=== PATIENT | female | born 1955 | race Caucasian/White ===

== ENCOUNTER → 2018-06-17 | Day surgery (SDC) | payer BC ==
[2018-06-15 11:53] LABS: BASOPHILS # (AUTO) 0.1 (0.0-0.1); BASOPHILS % 0.6 % (0.0-1.0); EOSINOPHILS # (AUTO) 0.5 (0.0-0.4); EOSINOPHILS % 6.3 % (0.0-6.0); HEMATOCRIT 40.2 % (34.2-44.1); HEMOGLOBIN 12.7 g/dL (12.0-16.0); LYMPHOCYTES # (AUTO) 1.8 (1.0-3.2); LYMPHOCYTES % 23.2 % (18.0-39.1); MEAN CORPUSCULAR HEMOGLOBIN 27.3 pg (28-32); MEAN CORPUSCULAR HGB CONC 31.6 g/dL (31-35); MEAN CORPUSCULAR VOLUME 86.3 fL (81-99); MONOCYTES # (AUTO) 0.7 (0.2-0.8); MONOCYTES % 9.2 % (4.4-11.3); NEUTROPHILS # (AUTO) 4.7 (2.1-6.9); NEUTROPHILS % 60.4 % (38.7-80.0); PLATELET COUNT 303 x10e3/uL (140-360); RED BLOOD COUNT 4.66 x10e6/uL (3.6-5.1); RED CELL DISTRIBUTION WIDTH 15.9 % (11.7-14.4)
[2018-06-15 12:06] LABS: INR 0.96
[2018-06-15 12:07] LABS: PARTIAL THROMBOPLASTIN TIME 22.4 seconds (23.8-35.5)
[2018-06-15 12:16] LABS: ALANINE AMINOTRANSFERASE 34 IU/L (0-55); ALBUMIN 3.8 g/dL (3.5-5.0); ALKALINE PHOSPHATASE 67 IU/L (40-150); ANION GAP 15.4 mmol/L (8-16); BLOOD UREA NITROGEN 15 mg/dL (7-26); BUN/CREATININE RATIO 19 (6-25); CALCIUM 9.9 mg/dL (8.4-10.2); CARBON DIOXIDE 25 mmol/L (22-29); CHLORIDE 99 mmol/L (98-107); CREATININE, SERUM 0.79 mg/dL (0.57-1.11); EST GLOMERULAR FILTRATION RATE > 60 ML/MIN (60-); GLUCOSE 178 mg/dL (74-118); POTASSIUM 4.4 mmol/L (3.5-5.1); SODIUM 135 mmol/L (136-145)
[~2018-06-17] MED LIST: ALENDRONATE SOD35 MG PO; AMITRIPTYLINE H10 MG PO; AREDS EYE VIT PO; ARIMIDEX1 MG PO; BUPIVACAINE HCL 0.5% INJ 30 ML VIAL INJ ONE; CALCIUM 600 +1 EAC2 PO; CEFAZOLIN SOD 1 GM VIAL IV ONE; CEFAZOLIN SOD 1 GM VIAL ONE; CITALOPRAM HBR20 MG PO; DEXAMETHASONE SOD PHOS INJ 4 MG/ML VIAL IV ONE; DIPHENHYDRAMINE HCL INJ 50 MG/ML VIAL ONE; EPINEPHRINE HCL INJ 1 MG/ML AMP ONE; FENTANYL CITRATE/PF 100MCG/2 ML INJ ONE; FIBER GUMMIES PO; GLIMEPIRIDE1 MG PO; INVOKAMET PO; JANUVIA100 MG PO; KETOROLAC TROMETHAMINE 30 MG/ML VIAL IV ONE; KETOROLAC TROMETHAMINE 30 MG/ML VIAL ONE; LIDOCAINE HCL 1% LOCAL INJ 20 ML VIAL ONE; LIDOCAINE HCL 2% LOCAL INJ 5 ML SDV VIAL INJ ONE; LISINOPRIL-HCT1 EAC2 PO; METOPROLOL SUCC50 MG PO; MIDAZOLAM HCL 2 MG/2 ML VIAL ONE; MORPHINE SULFATE 2 MG/ML SYR ONE; ONDANSETRON HCL INJ 2 MG/ML VIAL IV ONE; PROBIOTIC PO; PROPOFOL IV EMULSION 10 MG/ML 20 ML VIAL IV ONE; SEVOFLURANE INHAL SOLN 250 ML PEN BTL INH ONE; SIMVASTATIN40 MG PO
[2018-06-17 14:35] VITALS: BP 138/65
--- OUTSIDE RECORDS SUMMARY | 2018-07-08 07:39 | XMS REPORT ---
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 Unavailable Unavailable Problems This patient has no known problems. Allergies, Adverse Reactions, Alerts This patient has no known allergies or adverse reactions. Medications This patient has no known medications. Encounters Start Date/Time End Date/Time Encounter Type Admission Type Attending Clinicians Care Facility Care Department Encounter ID 2017-09-03 14:39:00 2017-09-03 14:39:00 Outpatient C MINNA JUNE M.D. [facility] [id number] Results Test Description Test Time Test Comments Text Results Atomic Results Result Comments POC Glucose, Blood 2017-09-03 15:59:00 POC Glucose (test code=POCGLUC) 101 mg/dL 70-115 If you consider your patient critically ill, the Charlee Accu-Chek InformII metershould not be used for Glucose determinations.Draw a venous Glucose and send to the Main Lab for Analysis.
--- OUTSIDE RECORDS SUMMARY | 2018-07-08 07:39 | XMS REPORT | Clinical Summary ---
Author Author [facility] Address Unknown Phone Unavailable Care Team Providers Care [employer] Team Member Name Role Phone William Macias MD PCP Allergies Active Allergy Reactions Severity Noted Date Comments Other 12/03/2015 Current Medications Prescription Sig. Disp. Refills Start End Date Status Date simvastatin (ZOCOR) 40 MG Take 40 mg by mouth every 2 08/24/20 Active tablet evening. 17 mometasone (NASONEX) 50 SPRAY ONCE INTO EACH 11 07/29/20 Active mcg/actuation nasal spray NOSTRIL TWICE A DAY 17 metoprolol succinate XL Take 50 mg by mouth 2 10/01/20 Active (TOPROL-XL) 50 mg 24 hr daily. 17 tablet glimepiride (AMARYL) 2 MG TAKE 1 TABLET WITH 1 08/03/20 Active tablet BREAKFAST AND 1 TABLET 17 WITH DINNER ORALLY 90 DAYS lisinopril-hydrochlorothi Take 1 tablet by mouth 2 08/29/20 Active azide daily. 17 (PRINZIDE,ZESTORETIC) 10-12.5 mg per tablet fluocinonide (LIDEX) 0.05 APPLY TO AFFECTED AREA 3 09/21/20 Active % external solution TWICE A DAY 17 fluocinonide (LIDEX) 0.05 APPLY TO AFFECTED AREA 3 09/21/20 Active % cream TWICE A DAY FOR RASH ON 17 BREASTS AND ADBDOMEN citalopram (CeleXA) 20 MG Take 20 mg by mouth 2 08/29/20 Active tablet daily. 17 INVOKAMET XR 150-1,000 mg Take 1 tablet by mouth 2 0 08/24/20 Active ER tablet (two) times a day. 17 anastrozole (ARIMIDEX) 1 Take 1 mg by mouth daily. 11 10/22/19 Active mg chemo tablet 18 amitriptyline (ELAVIL) 10 Take 10 mg by mouth 2 08/29/20 Active MG tablet nightly. 17 alendronate (FOSAMAX) 35 Take 35 mg by mouth every 3 08/13/20 Active MG tablet 7 days. 17 sitaGLIPtin (JANUVIA) 100 Take 100 mg by mouth. Active MG tablet phenylephrine (SUDAFED Take 10 mg by mouth. Active PE) 10 MG tablet montelukast (SINGULAIR) Take 10 mg by mouth. Active 10 mg tablet loperamide (IMODIUM A-D) Take 2 mg by mouth. Active 2 mg tablet inulin 1.5 gram Chew 2 tablets. Active tablet,chewable ibuprofen (ADVIL,MOTRIN) Take 200 mg by mouth. Active 200 MG tablet cholecalciferol, vitamin Take 400 Units by mouth. Active D3, (VITAMIN D3) 2,000 unit tablet cetirizine (ZyrTEC) 10 MG Take 10 mg by mouth. Active tablet calcium carbonate-vitamin Take 1 tablet by mouth. Active D3 600 mg(1,500mg) -400 unit per tablet Active Problems No known active problems Encounters Date Type Specialty Care Team Description 11/05/2017 Office Visit Obstetrics and Gynecology Zoey Corona Encounter for kj Herzog MD exam (Primary Dx); History of breast cancer after 06/16/2017 Family History Medical History Relation Name Comments Breast cancer Cousin Milana Diabetes Father Heart attack Father Heart disease Father Hypertension Father Ovarian cancer Maternal Aunt Mery Cancer Maternal Aunt Evenlyn Melanoma Diabetes Mother Hypertension Mother Breast cancer Paternal Aunt Maria A Ovarian cancer Paternal Aunt [place] Breast cancer Paternal Aunt Vallis Relation Name Status Comments Cousin Milana Alive Maternal Father Maternal Aunt Mery Maternal Aunt Evenlyn Mother Alive Paternal Aunt [place] Paternal Aunt Vallis Social History Tobacco Use Types Packs/Day Years Used Date Never Smoker Smokeless Tobacco: Never Used Alcohol Use Drinks/Week oz/Week Comments Yes social Sex Assigned at Date Recorded Not on file Last Filed Vital Signs Not on file Plan of Treatment Health Maintenance Due Date Last Done Comments CERVICAL CANCER SCREENING 1978 BREAST CANCER SCREENING 2007 COLON CANCER SCREENING 2007 SHINGRIX VACCINE (#1) 2007 ZOSTER VACCINE 2017 INFLUENZA VACCINE 05/05/2018 Procedures Procedure Name Priority Date/Time Associated Diagnosis Comments HPV MRNA E6/E7 Routine 11/05/2017 Results for this 3:50 PM STOCK GRADER procedure are in the results section. THINPREP TIS PAP Routine 11/05/2017 Results for this 3:50 PM STOCK GRADER procedure are in the results section. after 06/16/2017 Results * HPV mRNA E6/E7 (11/05/2017 3:50 PM) HPV mRNA e6/e7 Not Detected Not Detected FTBpro Comment: [place] This test was performed using the APTIMA HPV Assay ([employer] This assay detects E6/E7 viral messenger RNA (mRNA) from 14 high-risk HPV types (16,18,31,33,35,39,45,51,52,56 ,58,59,66,68). Other Results Text Performing Organization Information: Site ID: [id number] Name: [facility] Address: [address] [place] [id number] Director: Brittany Jacobs MD Performing Organization Address [facility] Phone Number [facility] FTBpro [place] [phone] * THINPREP TIS PAP (11/05/2017 3:50 PM) Clinical information None given [facility] [place] Date of last menstrual NONE GIVEN [facility] period [place] Prev. pap: NONE GIVEN [facility] [place] Prev. bx: NONE GIVEN [facility] [place] Source [facility] [place] Statement of adequacy Comment: [facility] Satisfactory for evaluation. [place] Endocervical/transformation zone component present. Interpretation/result: Comment: Negative for [facility] intraepithelial lesion or [place] malignancy. Comment Comment: [facility] Tip of collection device in [place] vial This case could not be evaluated with computer assisted technology. The slide was manually screened according to routine procedures. Watch And Clock Repairer Comment: [facility], CT(ASCP) [place] CT screening location: [place] [id number] Other Results Text Performing Organization Information: Site ID: [id number] Name: [facility] Address: [address] [place] [phone] Director: Brittany Jacobs MD Performing Organization Address [facility]ode Phone Number [facility] [address] [id number] after 06/16/2017 Insurance Payer Benefit Subscriber ID Type Phone Address Plan / Group BCBS BCBS xxxxxxxxx PPO CHOICE PPO/JOSÉ MIGUEL HASSAN PPO
--- NOTE | 2018-07-12 22:10 | Operative Report ---
DATE OF PROCEDURE: June 17, 2018 PREOPERATIVE DIAGNOSES: 1. History of left breast cancer. 2. Acquired deformity of left breast. 3. Right breast hypermastia. 4. Breast asymmetry and fat. 5. Fat necrosis of left breast. POSTOPERATIVE DIAGNOSES: 1. History of left breast cancer. 2. Acquired deformity of left breast. 3. Right breast hypermastia. 4. Breast asymmetry and fat. 5. Fat necrosis of left breast. PROCEDURES PERFORMED: 1. Excision of fat necrosis tissue, left breast. 2. Left breast reconstruction with fat transfer to the left breast, approximately 250 mL of fat transferred to the left breast. 3. Right breast reduction, 107 g of breast tissue removed from the right breast. ANESTHESIA: General endotracheal. INDICATION FOR SURGERY: This is a 63-year-old female who approximately 2 years ago was diagnosed with left breast cancer and underwent left breast segmental mastectomy and sentinel lymph node biopsy, followed by radiation to the left breast. Patient is currently presenting complaining of fat necrosis to the left breast, left breast deformity, right breast hypermastia, breast asymmetry and fat, and desires excision of fat necrosis tissue of left breast, left breast reconstruction with fat transfer to the left breast, and right breast reduction. Risks, alternatives, and possible complications of the above procedure were explained to the patient. These include, but are not limited to bleeding, infection, scarring, skin flap or nipple necrosis, breast asymmetry, wound dehiscence, failure of fat transfer, firmness or lumpiness, residual fat necrosis, recurrence of fat necrosis, deep venous thrombosis, pulmonary embolism, unsatisfactory esthetic result, and possible need for further surgery. The patient had an opportunity to ask questions and have her questions answered and agreed to proceed with the proposed procedure. PROCEDURE IN DETAIL: The patient was marked in the preoperative holding area. She was then taken to the operating room and placed supine on the operating table. After adequate general anesthesia, attention was first turned to the patient's left breast. The preoperative markings were rechecked. Both nipple-areolar complexes were marked with White Source cutter at 42 mm diameter. There was scar contracture around the left breast nipple, and the scar tissue around the left breast nipple was carefully excised with the help of #15 blade and with the Bovie. The contracted tissue was gently released in order to preserve the blood supply to the left nipple and prevent left nipple necrosis. Through the periareolar incision, tissue was dissected towards the superior portion of the left breast and the fat necrosis tissue was identified and carefully dissected with the help of Metzenbaum scissors. The dissected fat necrosis tissue was sent to pathology for permanent. Hemostasis was achieved with the Bovie, and the resulting defect was closed with local advancement flaps, which were sutured in place with interrupted 3-0 Vicryl sutures. The periareolar incision was then closed with interrupted 4-0 Vicryl sutures and the running subcuticular 4-0 PDS suture. Attention was then turned to the patient's abdomen and flanks, those were the donor areas for the fat transfer. Through 2 small incisions in the suprapubic area, tumescent fluid was injected first in the patient's abdomen approximately 1000 mL and then 600 mL in each of the patient's flank areas. After adequate time was given for the tumescent to act, suction-assisted lipectomy was undertaken with #3 mm cannula. The aspirated fat was collected and purified for fat transfer. Approximately 250 mL of aspirate were removed from each flank area and 700 mL of aspirate were removed from the patient's abdominal area. The harvested fat was purified using the Puregraft fat purification system. The fat harvesting sites were closed with a single stitch of 5-0 chromic needle. Approximately 250 mL of purified fat was then transferred to the patient's left breast mostly in the superior portion of the breast, but also in other areas which had defects resulting from the lumpectomy and radiation. The fat transfer was performed with 16-gauge blunt-tip cannula. After completion of the fat transfer, attention was turned to the patient's right breast. The preoperative markings were rechecked and the nipple-areolar complex was marked with cookie cutter at 42 mm of diameter. The excess skin was then de-epithelialized with the help of #15 blade and with the Bovie. The right breast was marked for superior pedicle breast reduction. From the de-epithelialized skin, a superior pedicle was developed and breast tissue was removed from the inferior, medial, and lateral portion of the right breast. A total of 107 g of breast tissue was removed from the right breast. Before closure of the right breast incisions, the incisions were stapled and the 2 breasts were checked for symmetry. They appeared to be symmetric. The nipple-areolar complex was then sutured in its new superior location with interrupted 4-0 Vicryl sutures. The medial and lateral skin flaps were advanced to each other and sutured to each other with interrupted 3-0 Vicryl sutures. The inframammary incision was also closed with interrupted 3-0 Vicryl sutures and a running subcuticular 3-0 PDS suture. A running subcuticular 4-0 PDS suture was placed along the vertical limb and around the nipple-areolar complex. At the end of the case, the 2 breasts appeared to be symmetric, both nipples and all skin flaps appeared to be viable. Steri-Strips were placed around each nipple-areolar complex. All incisions on the breasts were covered with Xeroform and ABD pads. The abdominal incisions were covered with ABD pads, and an abdominal binder was placed on the patient. The patient's breasts were wrapped with a large 6-inch Bud wrap. She tolerated the procedure well. There were no immediate complications. The needle and instrument count was correct at the end of the case and she was transferred extubated to the recovery room. Job#: [id number]
== END | disposition home or self-care (01) ==
LOC: OR 05:50
PROVIDERS: ATTEND Plastic Surgery
DX: N64.89 Other specified disorders of breast (principal); N62 Hypertrophy of breast; N64.1 Fat necrosis of breast; Z85.3 Personal history of malignant neoplasm of breast; Z92.3 Personal history of irradiation; G47.33 Obstructive sleep apnea (adult) (pediatric); E11.9 Type 2 diabetes mellitus without complications; I10 Essential (primary) hypertension; E78.5 Hyperlipidemia, unspecified; K21.9 Gastro-esophageal reflux disease without esophagitis; K44.9 Diaphragmatic hernia without obstruction or gangrene; Z01.810 Encounter for preprocedural cardiovascular examination; Z01.812 Encounter for preprocedural laboratory examination; Z79.84 Long term (current) use of oral hypoglycemic drugs
CPT/HCPCS: 19318; 19380; 36415 ×2; 80053; 82948; 85025; 85610; 85730; 88302; 93005; J0171; J0690; J1100; J1200; J1885; J2001 ×2; J2250; J2270; J2405